=== PATIENT | female | born 1940 | race Caucasian/White ===

== ENCOUNTER → 2018-06-29 | Outpatient (CLI) | payer MEDICARE, OTHER ==
[2018-06-29 11:21] LABS: Appearance,Urine Clear (Clear); Bacteria,Urine Rare /hpf; Bilirubin,Urine Negative (Negative); Blood,Urine Negative (Negative); Color,Urine Yellow; Glucose,Urine (UA) Negative (Negative); Ketones,Urine Negative (Negative); Leukocyte Esterase,Urine Moderate (Negative); Mucus,Urine Rare /hpf; Nitrite,Urine Negative (Negative); Protein,Urine Negative (Negative); Specific Gravity,Urine 1.015 (1.001-1.035); Squamous Epithelial Cell,Urine 1 /hpf (0-4); Urobilinogen,Urine <2.0 mg/dL (<2.0); WBC,Urine 12 /hpf (0-5)
[2018-06-29 11:28] LABS: HCT 42.2 % (34.0-46.0); MCH 30.5 pg (25.0-35.0); MCHC 33.1 g/dL (31.0-37.0); MCV 92.2 fL (80.0-100.0); Mean Platelet Volume 8.3; Platelet Count 203 k/uL (150-450); RBC 4.58 m/uL (3.80-5.40); RDW 13.7 % (11.5-15.5); WBC 6.7 k/uL (3.8-10.6)
[2018-06-29 11:31] LABS: INR 1.1 (<1.2); Partial Thromboplastin Time 23.5 sec (22.0-30.0); Prothrombin Time 10.9 sec (9.0-12.0)
[2018-06-29 11:32] LABS: Albumin 4.1 g/dL (3.5-5.0); Calcium 9.8 mg/dL (8.4-10.2); Potassium 3.9 mmol/L (3.5-5.1); Total Bilirubin 0.9 mg/dL (0.2-1.3); Total Protein 7.2 g/dL (6.3-8.2)
== END | disposition home or self-care (01) ==
LOC: LABPAT 10:10
PROVIDERS: ATTEND Orthopaedic Surgery
DX: Z01.812 Encounter for preprocedural laboratory examination (principal); Z79.01 Long term (current) use of anticoagulants
CPT/HCPCS: 36415; 80053; 81001; 85027; 85610; 85730; 87070; 93005

== ENCOUNTER 2018-07-17 09:17 | Inpatient (IN) | payer MEDICARE, OTHER ==
[2018-07-11 15:32] VITALS: BMI 36.3
[~2018-07-17 09:17] MED LIST: ACETAMINOPHEN TAB 500 MG TAB PO ONE; MELOXICAM 7.5 MG TAB PO ONE; MIDAZOLAM 2 MG/2 ML VIAL IV PRN; ROPIVACAINE 246.25 MG, EPINEPHrine 0.5 MG, KETOROLAC 30 MG, cloNIDine HCL/PF 80 MCG, WA... MISCELLANE ONE; TRANEXAMIC ACID 1,000 MG in SODIUM CHLORIDE 0.9% 50 ML IVPB ONE; ceFAZolin IN SWFI 2 GM/20 ML SYRINGE IVP ONE; fentaNYL (PF) 50 MCG/ML 2 ML AMP IV PRN
[2018-07-17] MEDS: LACTATED RINGERS 1,000 ML IV SCH ×2 (10:23→17:36)
[2018-07-17] MEDS ORDERED: LIDOCAINE 1% 20 ML VIAL (10MG/ML) FOR IV START INTRADERMA ONE (10:23)
[2018-07-17] MEDS ORDERED: ONDANSETRON 4 MG/2 ML VIAL IVP ONE (10:23)
[2018-07-17] MEDS ORDERED: DEXAMETHASONE SOD PHOSPHATE 10 MG/ML 1 ML VIAL IV ONE (10:24)
[2018-07-17] MEDS ORDERED: MAGNESIUM HYDROXIDE 2,400 MG/10 ML CUP PO PRN (11:37)
[2018-07-17] MEDS ORDERED: NALOXONE 0.4 MG/ML 1 ML VIAL IV PRN (11:37)
[2018-07-17] MEDS ORDERED: HYDROmorphone 1 MG/ML 1 ML SYRINGE IVP PRN ×3 (11:37)
[2018-07-17] MEDS ORDERED: NA PHOS,M-B/NA PHOS,DI-BA 133 ML ENEMA RECTAL PRN (11:37)
[2018-07-17] MEDS ORDERED: hydrOXYzine PAMOATE 25 MG CAP PO PRN (11:37)
[2018-07-17] MEDS ORDERED: DIAZEPAM 5 MG TAB PO PRN (11:37)
[2018-07-17] MEDS ORDERED: HYDROcodone/APAP 5-325MG 1 EACH TAB PO PRN (11:37)
[2018-07-17] MEDS ORDERED: BISACODYL 10 MG SUPP RECTAL PRN (11:37)
[2018-07-17] MEDS ORDERED: ceFAZolin 3,000 MG in SODIUM CHLORIDE 0.9% IRRIGATIO 3,000 ML IRRIGATION ONE (12:16)
[2018-07-17] MEDS ORDERED: SODIUM CHLORIDE 0.9% 100 ML BAG ONE (12:16)
[2018-07-17] MEDS ORDERED: PROPOFOL 10 MG/ML 20 ML VIAL IV ONE (12:16)
[2018-07-17] MEDS ORDERED: TRANEXAMIC ACID 1,000 MG/10 ML VIAL ONE (12:16)
[2018-07-17] MEDS ORDERED: ePHEDrine SULFATE/0.9% NACL/PF 50 MG/5 ML SYRINGE IV ONE (12:16)
[2018-07-17] MEDS ORDERED: MIDAZOLAM 2 MG/2 ML VIAL ONE (12:16)
[2018-07-17] MEDS ORDERED: diphenhydrAMINE 50 MG/ML 1 ML VIAL ONE (12:16)
--- NOTE | 2018-07-17 12:16 | P.ONQ ---
Anesthesiology Proc Note - PNB - Peripheral Nerve Block Performed Right Adductor Canal Infusion Time Out Performed: Yes Procedure Start Time: 11:04 Procedure Stop Time: 11:14 Indication: Acute Post-Operative Pain, Requested by physician Sedation Type: Sedate with meaningful contact maintained Preparation: Sterile Dressing Position: Supine Catheter: Indwelling Needle Types: On-Q Needle Size: 100mm (4") Needle Gauge: 21 Technique: Ultrasound Injectate: 0.5% Ropivacaine (see comment for volume) (ropi .5% 20cc) Blood Aspirated: No Pain Paresthesia on Injection Noted: No Resistance on Injection: Normal Events: Uneventful and Well Tolerated
[2018-07-17] MEDS ORDERED: LACTATED RINGERS 1,000 ML IV ONE (13:19)
--- NOTE | 2018-07-17 13:54 | P.OP ---
Date of Procedure: 07/17/18 Preoperative Diagnosis: Severe osteoarthritis right knee Postoperative Diagnosis: Severe osteoarthritis right knee Procedure(s) Performed: Right total knee arthroplasty Implants: [employer] Journey II CR Oxinium cruciate retaining femoral component size 7, right [employer] Journey right nonporous tibial baseplate size 6 [employer] Journey II, XLPE Deep Dished articular insert, size 9 mm, Size 5- 6 right [employer] Journey BCS resurfacing round patellar component, 32 mm All components were cemented using [place] R bone cement.. The articulation is Oxinium on polyethylene. Anesthesia: spinal Surgeon: Ross De Luna Hand Filer Balance Wheel #1: Steph Ruiz Estimated Blood Loss (ml): 100 Pathology: other (Bone and cartilage) Condition: stable Disposition: PACU Indications for Procedure: After failure of conservative treatment we discussed the surgical and nonsurgical treatment options at length. Patient wishes to proceed with a total knee arthroplasty. Complications specific to this procedure were discussed at length, including but not limited to infection, bleeding, stiffness , and nerve injury. Patient is aware of all these complications and informed consent was obtained Operative Findings: The operative findings are consistent with severe osteoarthritis of the right knee Description of Procedure: Patient was seen in the preoperative area consent was reviewed and operative site was marked with a skin marker. An adductor canal pain catheter was placed by anesthesia in the preoperative area. Patient was then brought to the operating room and given preoperative antibiotics intravenously. A spinal anesthetic was administered by the anesthesia department. A tourniquet was placed on the upper thigh and the lower extremity was prepped and draped in usual sterile fashion. A gram of transexamic acid was given. A universal timeout was then performed which confirmed the patient's name, surgical site, ALLERGIES, and consent. The lower extremity was then exsanguinated and tourniquet was inflated to 250 mmHg. A standard and anterior midline approach to the knee was performed. The skin and subcutaneous tissue was dissected down to the patellar tendon. A medial parapatellar arthrotomy was then performed. The knee was then extended, the patellar was everted, and the knee was again flexed. Anterior horns of both menisci were excised, and a release was performed to the posterior medial aspect of the knee. On gross visual inspection, there was complete loss of articular cartilage in the medial and patellofemoral joint spaces. There was also significant cartilage damage in the lateral compartment. There were multiple periarticular osteophytes which were then removed with a Ronguer. The femoral canal was then opened with the appropriate drill, and the intramedullary femoral cutting guide was then placed and set for 5 of valgus. The distal femoral cutting block was then pinned in place, and the distal femur was then cut. The cutting block was then removed and the cut was checked for flatness. Next, the sizing guide was then placed and set for 3 external rotation based off of the epicondylar axis and [place] line. After the femur was sized, the appropriate 4-in-1 cutting block was then pinned in place. The anterior condyles were cut without notching. The posterior and chamfer cuts were performed while protecting the collateral ligaments. The cutting block was then removed, and the femoral canal was plugged with autologous bone. Attention was then directed to the tibia. The remaining ACL was removed with a Ronguer, and the tibia was then gently subluxed forward with a large bent knee retractor. Any remaining menisci was excised. The posterior lateral corner was cauterized in order to cauterize the lateral geniculate artery. The extra medullary tibial cutting guide was then placed, set for the appropriate rotation , slope, and depth of resection. The proximal tibia cutting guide was then pinned in place. Proximal tibia was then cut and sized. Next trials were then placed with the appropriate-sized insert. The knee was able to fully extend and flex to 130 and was stable throughout all range of motion. The knee was then extended, patella everted. Patella was then measured, and then using an osteotomy guide, the patella was cut at the appropriate level. The patella was then measured and drilled and the patella trial was then placed. The knee was then taken through range of motion with the patella trial and the patella tracked normally. The knee was then extended patella trial was then removed and the patella was everted. Knee was then flexed and lug holes were drilled through the femoral trial and the femoral trial was then removed. The tibial was then exposed, and the tibial broach guide was then pinned in place after it was set for the appropriate rotation to allow for the most coverage without overhang. The tibia was then reamed and broached. The cut surfaces of bone were then irrigated with pulsatile lavage. The posterior structures were injected with the ropivacaine solution. The knee was also irrigated with Irrisept solution. The components were then opened, the cement was mixed, and the components were then cemented in place. The cement was allowed to harden with the knee in full extension. While the cement was hardening, the remaining soft tissues were then injected with a ropivacaine solution, which consisted of 246.25 mg of ropivacaine, 0.5 mg of epinephrine, 30 mg of Toradol, 80 g of clonidine, and 48.45 mL of sterile water, for a total of 100 mL of fluid injected. After the cemented hardened. The tourniquet was released, and hemostasis was obtained. A second gram of transexamic acid was given. The knee was again irrigated. The knee was again taken through range of motion and found to be stable throughout all range of motion of 0-130 , and the patella tracked normally. The fascia was then closed with #2 strata fix suture. The subcutaneous tissue was closed with 3-0 Vicryl and 3-0 strata fix. Dermabond glue was used for the skin and placed with the knee in flexion. The patient was placed in a sterile silver dressing. Patient was then transferred to recovery room in stable condition. The field research assistant OSMIN Garcia was required due the complexity surgery and the need for a skilled surgical processor. She assisted in positioning, draping, retraction, and closure of the wound.
[2018-07-17] MEDS: ROPIVACAINE 1,100 MG, SODIUM CHLORIDE 0.9% 500 ML 330 ML MISCELLANE PRN ×2 (14:58)
--- NOTE | 2018-07-17 14:58 | XR ---
EXAMINATION TYPE: XR knee limited RT DATE OF EXAM: 07/17/2018 CLINICAL HISTORY: Right knee pain and arthritis status post total knee replacement. TECHNIQUE: Portable AP and crosstable lateral views of the right knee are obtained immediately posto peratively. COMPARISON: None FINDINGS: Metallic hardware from total right knee arthroplasty is seen and appears satisfactory in a lignment and position. There is evidence of recent surgery with diffuse subcutaneous gas and soft ti ssue swelling noted. [place] osseous structures are noted demineralized. IMPRESSION: METALLIC HARDWARE FROM TOTAL RIGHT KNEE ARTHROPLASTY IS SATISFACTORY IN ALIGNMENT.
[2018-07-17] MEDS: SODIUM CHLORIDE 0.9% 1,000 ML IV SCH (20:21)
[2018-07-17] MEDS: ceFAZolin IN SWFI 2 GM/20 ML SYRINGE IVP SCH (20:21)
[2018-07-17] MEDS: SENNOSIDES-DOCUSATE SODIUM 1 EACH TAB PO SCH (20:27)
[2018-07-17] MEDS: ASPIRIN 325 MG TAB PO SCH (20:28)
[2018-07-17] MEDS ORDERED: BRIMONIDINE TARTRATE LEFT EYE SCH (21:00)
[2018-07-17] MEDS ORDERED: TIMOLOL LEFT EYE SCH (21:00)
[2018-07-17] MEDS: FUROSEMIDE 40 MG TAB PO SCH (21:48)
[2018-07-17] MEDS: CALCIUM CARBONATE 500 MG CHEWABLE PO SCH (21:50)
[2018-07-17] MEDS: POTASSIUM CHLORIDE ER 20 MEQ TAB.ER PO SCH (21:50)
[2018-07-17] MEDS: LATANOPROST 0.005% OPHTH DROPS 2.5 ML BTL LEFT EYE SCH (21:51)
[2018-07-18] MEDS: HYDROcodone/APAP 5-325MG 1 EACH TAB PO PRN ×3 (01:02→17:03)
[2018-07-18] MEDS: ROPIVACAINE 1,100 MG, SODIUM CHLORIDE 0.9% 500 ML 330 ML MISCELLANE PRN ×8 (03:01→22:24)
[2018-07-18] MEDS: ceFAZolin IN SWFI 2 GM/20 ML SYRINGE IVP SCH (04:00)
[2018-07-18] MEDS: PANTOPRAZOLE 40 MG TABLET PO SCH ×2 (06:09→16:35)
[2018-07-18] MEDS: LEVOTHYROXINE 75 MCG TAB PO SCH (06:10)
[2018-07-18 06:31] LABS: Basophils % (A) 0 %; Eosinophils % (A) 0 %; HCT 36.3 % (34.0-46.0); HGB 11.6 gm/dL (11.4-16.0); Lymphocytes # (A) 1.9 k/uL (1.0-4.8); Lymphocytes % (A) 13 %; MCH 29.5 pg (25.0-35.0); MCV 92.3 fL (80.0-100.0); Mean Platelet Volume 8.2; Monocytes % (A) 7 %; Neutrophils # (A) 11.8 k/uL (1.3-7.7); Neutrophils % (A) 79 %; Platelet Count 130 k/uL (150-450); RBC 3.93 m/uL (3.80-5.40); RDW 13.6 % (11.5-15.5); WBC 14.9 k/uL (3.8-10.6)
[2018-07-18] MEDS: SODIUM CHLORIDE 0.9% 1,000 ML IV SCH ×2 (07:54→15:57)
[2018-07-18] MEDS: BRIMONIDINE TARTRATE 0.2% DROPS 5 ML BTL LEFT EYE SCH ×2 (09:40→20:24)
[2018-07-18] MEDS: TIMOLOL 0.5% OPHTH DROPS 5 ML BTL LEFT EYE SCH ×2 (09:40→20:25)
[2018-07-18] MEDS: ASPIRIN 325 MG TAB PO SCH ×2 (09:40→20:23)
[2018-07-18] MEDS: ATENOLOL 50 MG TAB PO SCH (09:41)
[2018-07-18] MEDS: FUROSEMIDE 40 MG TAB PO SCH ×2 (09:41→16:35)
[2018-07-18] MEDS: MELOXICAM 7.5 MG TAB PO SCH (09:41)
[2018-07-18] MEDS: CALCIUM CARBONATE 500 MG CHEWABLE PO SCH ×2 (09:41→20:23)
[2018-07-18] MEDS: POTASSIUM CHLORIDE ER 20 MEQ TAB.ER PO SCH ×2 (09:42→20:22)
--- NOTE | 2018-07-18 09:49 | P.PN ---
Progress Note - Text Progress Note Date: 07/18/18 The patient is status post 1 adductor canal catheter placement. The catheter was placed for postoperative pain control, status post total right knee arthroplasty. Ropivacaine 0.2% is infusing at 8 mLs per hour. The patient has no complaints of right lower extremity numbness or weakness. Patient's VAS score is 5-10. Assessment: Patient's adductor canal catheter is in place and working appropriately. Plan: continue infusion and adjust it as needed.
[2018-07-18] MEDS: LACTATED RINGERS 1,000 ML IV SCH (09:53)
[2018-07-18] MEDS: SENNOSIDES-DOCUSATE SODIUM 1 EACH TAB PO SCH (20:23)
[2018-07-18] MEDS: LATANOPROST 0.005% OPHTH DROPS 2.5 ML BTL LEFT EYE SCH (20:24)
[2018-07-19] MEDS: HYDROcodone/APAP 5-325MG 1 EACH TAB PO PRN (02:27)
[2018-07-19] MEDS: PANTOPRAZOLE 40 MG TABLET PO SCH (06:13)
[2018-07-19] MEDS: LEVOTHYROXINE 75 MCG TAB PO SCH (06:13)
[2018-07-19] MEDS: SODIUM CHLORIDE 0.9% 1,000 ML IV SCH (07:55)
--- NOTE | 2018-07-19 08:17 | P.DS ---
Providers Date of admission: 07/17/18 09:17 Expected date of discharge: 07/19/18 Attending physician: Ross De Luna Consults: 07/17/18 11:37 Consult Physician Routine Consulting Provider: Thomas Bae Consult Reason/Comments: medical management and anticoagulation Do you want consulting provider notified?: Yes Primary care physician: Thomas Bae - Discharge Diagnosis(es) (1) Primary osteoarthritis of right knee Current Visit: Yes Status: Acute (2) S/P total knee arthroplasty Current Visit: Yes Status: Acute Hospital Course: This is a 78-year-old female with known history of degenerative arthritis of the right knee. The patient presents for evaluation. After discussion and consideration patient elects to proceed with total knee arthroplasty. The patient is seen preoperatively by Dr. De Luna and medically cleared for surgery by their primary care physician. Patient is admitted to [facility] on 07/17/2018 for total knee arthroplasty. The procedures performed without complication or sequelae. The patient is doing well postoperatively. Labs and vital signs are stable on day of discharge. On day of discharge patient's knee incision is healing well. There is minimal erythema. There is no drainage noted at this time. There is minimal soft tissue swelling to the knee. Patient has full foot and ankle motion without difficulty or pain. Neurovascular status to the right lower extremity is intact. Patient is discharged home in good condition. Please see med rec for accurate list of home medications. Plan - Discharge Summary Discharge Rx Participant: Yes New Discharge Prescriptions: New Aspirin 325 mg PO BID #60 tab HYDROcodone/APAP 5-325MG [[place] 5-325] 1 - 2 tab PO Q4-6H PRN #84 tab PRN Reason: Pain Sennosides [Senokot] 1 tab PO BID #60 tablet No Action Omeprazole [PriLOSEC] 20 mg PO AC-BID Aspirin EC [Ecotrin Low Dose] 81 mg PO DAILY levETIRAcetam [Keppra] 750 mg PO Q12HR Levothyroxine Sodium [Levoxyl] 150 mcg PO DAILY Latanoprost [Xalatan 0.005%] 1 drop LEFT EYE HS Furosemide [Lasix] 40 mg PO BID Atenolol [Tenormin] 100 mg PO DAILY Potassium Chloride [Klor-Con 20] 20 meq PO BID Calcium Carbonate [Calcium] 600 mg PO BID Brimonidine Tartrate/Timolol [Combigan 0.2%-0.5% Eye Drops] 1 drop LEFT EYE BID Discharge Medication List Aspirin EC [Ecotrin Low Dose] 81 mg PO DAILY 07/11/18 [History] Atenolol [Tenormin] 100 mg PO DAILY 07/11/18 [History] Brimonidine Tartrate/Timolol [[place] 0.2%-0.5% Eye Drops] 1 drop LEFT EYE BID 07/11/18 [History] Calcium Carbonate [Calcium] 600 mg PO BID 07/11/18 [History] Furosemide [Lasix] 40 mg PO BID 07/11/18 [History] Latanoprost [Xalatan 0.005%] 1 drop LEFT EYE HS 07/11/18 [History] Levothyroxine Sodium [Levoxyl] 150 mcg PO DAILY 07/11/18 [History] Omeprazole [PriLOSEC] 20 mg PO AC-BID 07/11/18 [History] Potassium Chloride [Klor-Con 20] 20 meq PO BID 07/11/18 [History] levETIRAcetam [Keppra] 750 mg PO Q12HR 07/11/18 [History] Aspirin 325 mg PO BID #60 tab 07/18/18 [Rx] HYDROcodone/APAP 5-325MG [[place] 5-325] 1 - 2 tab PO Q4-6H PRN #84 tab 07/18/18 [ Rx] Sennosides [Senokot] 1 tab PO BID #60 tablet 07/18/18 [Rx] Follow up Appointment(s)/Referral(s): Thomas Bae MD [Primary Care Provider] - 07/24/18 12:10 pm (Monday) [facility], [NON-STAFF] - Ross De Luna DO [Doctor of Osteopathic Medicine] - 2 Weeks Activity/Diet/Wound Care/Special Instructions: Weightbearing as tolerated with a walker. CPM 5-6h daily. Leave dressing intact. May be removed by home care nurse in 10 days. May shower with dressing on. Please call [facility] with any questions or concerns, . Discharge Disposition: HOME WITH HOME HEALTH SERVICES
[2018-07-19] MEDS: CALCIUM CARBONATE 500 MG CHEWABLE PO SCH (08:23)
[2018-07-19] MEDS: MELOXICAM 7.5 MG TAB PO SCH (08:23)
[2018-07-19] MEDS: ATENOLOL 50 MG TAB PO SCH (08:23)
[2018-07-19] MEDS: ASPIRIN 325 MG TAB PO SCH (08:24)
[2018-07-19] MEDS: POTASSIUM CHLORIDE ER 20 MEQ TAB.ER PO SCH (08:24)
[2018-07-19] MEDS: FUROSEMIDE 40 MG TAB PO SCH (08:24)
[2018-07-19] MEDS: BRIMONIDINE TARTRATE 0.2% DROPS 5 ML BTL LEFT EYE SCH (08:26)
[2018-07-19] MEDS: TIMOLOL 0.5% OPHTH DROPS 5 ML BTL LEFT EYE SCH (08:26)
[2018-07-19] MEDS: LACTATED RINGERS 1,000 ML IV SCH (08:27)
[2018-07-19 08:55] VITALS: RESP 16
[2018-07-19] MEDS ORDERED: HYDROmorphone 2 MG TAB PO PRN ×3 (11:35→11:36)
[2018-07-19 11:48] VITALS: BP 115/67; PULSE 82; TEMP 98.2
--- NOTE | 2018-07-19 13:17 | PN ---
PROGRESS NOTE DATE OF SERVICE: 07/18/2018 CHIEF COMPLAINT: Status post right TKA. HISTORY OF PRESENT ILLNESS: This lady is having quite a bit of discomfort in the knee now that spinal is worn off and she has discomfort up in the anterior thigh, which may be due to muscle spasm or cramps. Other than that, she is doing well. PHYSICAL EXAM: She is afebrile. Chest is clear. Cardiac exam is normal. IMPRESSION: Status post right total knee arthroplasty. PLAN: No change in program now and she will probably be going home tomorrow. MMODL / IJN: [id number] /
--- NOTE | 2018-07-19 13:19 | P.PN ---
Progress Note - Text Anesthesia POD 2. Patient is status post right TKR under spinal anesthesia with a right adductor canal catheter placed for postoperative pain relief. With ropivacaine 0.2% running at 8 cc's per hour, the patient's VAS is (1, 4). Catheter site is clean dry and intact.
--- NOTE | 2018-07-19 14:08 | CONS ---
CONSULTATION CHIEF COMPLAINT: Arthritis, right knee. HISTORY OF PRESENT ILLNESS: This is another admission for this 78-year-old white female. She is in for an elective TKA. 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 Other than that, she is in relatively good health. REVIEW OF SYSTEMS: She has had no recent seizures, change in vision and hearing, shortness of breath, chest pain, cough, hemoptysis, heart disease, murmurs, rheumatic fever, orthopnea, PND, abdominal pain, nausea, vomiting, hematemesis, melena, hematochezia, jaundice, hepatitis, etc. She has had no problems with renal failure, dysuria, frequency, urgency, etc. Past medical history, family history, personal and social histories are all otherwise unremarkable and noncontributory. She cannot take ACEs, arbs, or Paxil. Medications she is on include eye drops for glaucoma, potassium, Lasix, atenolol, levothyroxine, omeprazole, Keppra, vitamin D, meclizine, aspirin, and calcium. She does not smoke or drink. PHYSICAL EXAM: Blood pressure 128/82, pulse 76, respirations of 18. She is afebrile. She appeared to be overweight. She is in no distress. Head, ears, eyes, nose, mouth, and throat were normal and neck veins not distended. Chest is clear. Cardiac exam is normal. The abdomen is soft and nontender, protuberant. Extremities are unremarkable except for right knee, which is quite irritable. Pulses good. Neurologically, she is intact. IMPRESSION: 1. Osteoarthritis of the right knee. 2. 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 RECOMMENDATIONS: None. MMODL / IJN: [id number] /
--- NOTE | 2018-07-19 16:23 | PN ---
PROGRESS NOTE CHIEF COMPLAINT: Status post right knee replacement. HISTORY OF PRESENT ILLNESS: This lady is doing fairly well except for having quite a bit of discomfort in the knee. It is expected that she will go home today. PHYSICAL EXAMINATION: Cardiac exam is normal. Chest is clear. Color is good. IMPRESSION: Status post right total knee arthroplasty. PLAN: Probably home today. MMODL / IJN: [id number] /
== END 2018-07-19 13:33 | disposition home health service (06) | DRG 470 ==
LOC: 2ORMAIN 09:17 → 3SCARD 15:56
PROVIDERS: ADMIT Orthopaedic Surgery; ATTEND Orthopaedic Surgery
PROC: 0SRC069 Replacement of Right Knee Joint with Oxidized Zirconium on Polyethylene Synthetic Substitute, Cemented, Open Approach (ICD-10-PCS; principal; 2018-07-17 11:30)
DX: M17.11 Unilateral primary osteoarthritis, right knee (principal); I11.0 Hypertensive heart disease with heart failure; I50.9 Heart failure, unspecified; G40.909 Epilepsy, unspecified, not intractable, without status epilepticus; E03.9 Hypothyroidism, unspecified; F41.9 Anxiety disorder, unspecified; K21.9 Gastro-esophageal reflux disease without esophagitis; H40.9 Unspecified glaucoma; R26.81 Unsteadiness on feet; E66.9 Obesity, unspecified; Z68.37 Body mass index [BMI] 37.0-37.9, adult; Z86.011 Personal history of benign neoplasm of the brain; Z90.49 Acquired absence of other specified parts of digestive tract; Z98.51 Tubal ligation status; Z79.82 Long term (current) use of aspirin; Z79.890 Hormone replacement therapy; Z79.899 Other long term (current) drug therapy; Z83.3 Family history of diabetes mellitus
CPT/HCPCS: 85025; 88300